=== PATIENT | male | born 1995 | race African-American/Black ===

== ENCOUNTER 2023-10-11 15:14 | Emergency (ER) | payer OTHER ==
[~2023-10-11] VITALS: Ht 167.6 cm; Wt 69.9 kg
[2023-10-11] MEDS ORDERED: RIZA5TAB2 PO (15:22)
[2023-10-11] MEDS ORDERED: ACET-910 PO (15:22)
[2023-10-11] MEDS: LIDOCAINE 5% (LIDODERM) PATCH TD ONE (16:59)
[2023-10-11] MEDS: predniSONE 20 MG TAB PO ONE (16:59)
[2023-10-11] MEDS ORDERED: LIDO5DIS41 TD (18:10)
[2023-10-11] MEDS ORDERED: PRED20TA PO (18:10)
[2023-10-11] MEDS ORDERED: CYCL-707 PO (18:10)
[2023-10-11 18:18] VITALS: BP 121/75; TEMP 96.1; O2SAT 96
== END 2023-10-11 18:24 | disposition home or self-care (01) ==
LOC: M ED 15:14
DX: M54.42 Lumbago with sciatica, left side (principal); F17.200 Nicotine dependence, unspecified, uncomplicated; R51.9 Headache, unspecified; Z88.6 Allergy status to analgesic agent
CPT/HCPCS: 72110; 99283; J7512